=== PATIENT | male | born 1970 | race Two or more races ===

== ENCOUNTER → 2021-12-17 00:21 | Outpatient (CLI) | payer OTHER, SELFPAY ==
[2021-12-17 11:53] LABS: SARS-CoV-2 RNA PCR Negative
== END ==
PROVIDERS: Visit Provider Urology
DX: Z01.812 Encounter for preprocedural laboratory examination (principal); Z20.822 Contact with and (suspected) exposure to COVID-19
CPT/HCPCS: C9803; U0003; U0005

== ENCOUNTER 2021-12-20 00:19 | Day surgery (SDC) | payer OTHER, SELFPAY ==
[2021-12-15 12:15] VITALS: BMI 27.9
--- NOTE | 2021-12-15 12:26 | PC.NURSE ---
Report to the Outpatient Waiting Room, entrance under the green pavilion located off [facility], at time 1330 on date 12/20/21. OR Time: 1530. - You and your visitor will be asked a series of questions to screen for COVID 19 for your protection. - A mask is required within the hospital. One visitor will be allowed to accompany the patient into the hospital. Patients visitor will be instructed to remain with patient at all times or leave the building. We will allow the visitor to come back to the postoperative area when patient is ready. Preoperative COVID Testing Requirements: COVID TEST 12/17 AT 0845 No COVID Test needed if: (proof is required; if not received patient will have Rapid Test prior to entry) - Patient has received COVID Vaccine at least 14 days prior to procedure date or - Patient has positive COVID test result within last 90 days of surgery date. COVID Test needed if above criteria is not met If not COVID vaccinated a COVID test must be conducted within 72 hours of surgery and patient is asked to isolate self from time of testing until procedure. You will go to the [facility] for your COVID testing. The [facility] is located at the corner of [address] [facility]. You will only be called if COVID results are positive and your surgeon may reschedule your elective surgery date. Patients may have clear liquids (water, carbonated beverages, clear teas, apple juice) until 3 hours prior to surgery with a maximum of 20 ounces. - No food from midnight until time of surgery Take the following medications with a SIP of water the morning of surgery: NONE Medications to discontinue per physician: N/A Date to take last dose: N/A Please no make-up, nail bulgarian, hairspray, perfume, deodorant, or body powder the day of surgery. No jewelry (including any body piercings) or valuables the day of surgery, leave them at home. Please take a shower or bath the night before, or the morning of, surgery with an antibacterial soap. Wear comfortable, loose fitting clothing. - Jewelry must be removed prior to entering the operating room. Rings and piercings that are not removed may be cut off. - The hospital will not accept responsibility for valuables. - Please leave all valuables, including medications, at home the day of surgery. If you are going home after surgery, a licensed warehouse associate driver must drive you home. - NO public transportation without another adult. - We recommend that an adult stay with you for 24 hours following discharge. - We also recommend that you do not drive, make important decision, drink alcoholic beverages, or take any drugs that were not prescribed by your health care provider for at least 24 hours after your discharge time. Follow any additional instructions given to you from your surgeon. Telephone instructions given to GRICELDA MICHELE and asked if any additional questions and then verbalized understanding. Patient advised to call surgeon office or pre surgery nurse liaison [phone] if any additional questions.
[2021-12-20] VITALS (7 sets, daily range): BP systolic 117–155; BP diastolic 82–94; PULSE 63–76; RESP 10–16; TEMP 36.8; O2SAT 97–100
--- NOTE | ~2021-12-20 | XR_ITS ---
EXAMINATION: XR urethrocystogram DATE: 12/20/2021 15:47 INDICATION: Urethral stricture. TECHNIQUE: 10 intraoperative fluoroscopic images from a retrograde urethrogram were obtained. I was n ot present. Fluoroscopy exposure time was 32 seconds. COMPARISON: None. FINDINGS: There is a stricture of the bulbar urethra. Images demonstrate passage of a wire to the grace dder. Additional images demonstrate a catheter dilating the urethral stricture. IMPRESSION: 1. Stricture of the bulbar urethra. Reviewed, dictated and finalized at location B.
--- NOTE | 2021-12-20 13:15 | WPDHPUPDATE1 ---
History and Physical Update Update Date/Time: 12/20/21 13:15 History and Physical has been reviewed, including an updated exam of the patient. There are NO changes in the patient's condition. Risks, benefits, and alternatives have been discussed and questions answered. Patient agrees to proceed with procedure.
--- NOTE | 2021-12-20 13:33 | P.PNAN_ITS ---
Anes - Initial Pre Proc Eval Procedure: Operation Date: 12/20/21 15:30 Proposed Procedures p Cystoscopy with Urethral Dilation, Retrograde Urethrogram - Garo Medrano MD Date/Time: 12/20/21 13:33 Surgeon: Garo Medrano MD Pre Op Diagnosis: Urethral Stricture Patient Data Age: 51 Gender: M Height: 1.85 m Weight: 96.16 kg Allergies Allergy/AdvReac Type Severity Reaction Status Date / Time No Known Allergies Allergy Verified 12/20/21 13:48 Home Medications Medication Instructions Recorded Confirmed Type sildenafil 50 mg PO DAILY PRN 12/15/21 12/20/21 History Patient hx anesthesia problems: none Family hx anesthesia problems: none Results Review: All pre-operative results and documents have been reviewed as part of the pre-operative evaluation. FOR[facility]LY [facility], [facility] Past Medical History Medical History (Updated 12/20/21 @ 13:34 by Bacilio Talbot MD) Overweight (BMI 25.0-29.9) Smoker Ureterolithiasis Urethral stricture Family History Family History (Updated 10/07/18 @ 10:31 by DOCTOR UNKNOWN) Father Hypertension Acute myocardial infarction Grandparent Carcinoma of colon Social History Social History Smoking status: Light tobacco smoker Tobacco type: cigars Second hand tobacco smoke exposure: No Additional smoking assessment comments: 1-2 TIMES/MONTH Alcohol intake: never Substance use: never Substance use type: does not use Living arrangements: with family Spiritual care concerns: No Anes - Eval Final PreProcedure Day of Procedure 12/20/21 13:33 Patient weight: overweight Heart: regular rate and rhythm Lungs: clear to auscultation and normal air movement Airway: Mallampati scale class II Neurological: alert and oriented Last oral intake: >/= 8 hours ASA classification: II Emergent: no Anesthetic plan: proceed Anesthesia type and monitoring: general LMA Results Review: All pre-operative results and documents have been reviewed as part of the pre-operative evaluation. Informed Consent: The patient's anesthetic plan and its attendant risks and benefits were discussed with the patient/family/POA. Questions were solicited and answers provided to the satisfaction of the patient/family/POA.
[2021-12-20] MEDS: LACTATED RINGERS 1,000 ML 30 ML IV CONT (13:58)
[2021-12-20] MEDS: ceFAZolin 2 GM/D5W 50 ML 2 GM/50 ML BAG IVPB (15:05)
[2021-12-20] MEDS: LIDOCAINE HCL 2% GEL UROJET 10 ML PKG MUCOUS MEM (15:11)
--- NOTE | 2021-12-20 15:44 | P.OP_ITS ---
Procedure Note - Detailed Date of Procedure 12/20/21 Pre-op Diagnosis Urethral Stricture Post-op Diagnosis Same Procedure Performed Retrograde urethrogram, urethral dilation, cystoscopy, Martinez catheter placement Surgeon Garo Medrano MD Anesthesia General Description of Procedure Patient is taken the operative suite and correctly identified. He was placed in dorsal lithotomy position prepped draped usual sterile fashion once general anesthesia was obtained. Retrograde urethrogram was performed. He has a approximately half a cm in length stricture in the bulbar urethra. We manipulated a guidewire past this area. We then used amplantz dilators and dilated up to 24 [place]. Cystoscopy was then performed. There were no other strictures noted. The prostate was not obstructive. The bladder itself was without any evidence of tumors. Scope was removed. 2% viscous lidocaine was inserted urethra. Twenty [place] tip catheter was passed over the guidewire up to the bladder. We inflated balloon with 10 cc sterile water. Patient is taken recovery stable condition. We will remove the catheter Sunday. If he is not tolerating it then possibly Sunday Drains Yes Packing No Pathology None sent Complications No immediate complications Condition Stable Disposition PACU
== END 2021-12-20 17:21 | disposition home or self-care (01) ==
PROVIDERS: Visit Provider Urology
PROC: (CPT 52352; principal; 2021-12-20 15:30)
DX: N35.912 Unspecified bulbous urethral stricture, male (principal); Z72.0 Tobacco use
CPT/HCPCS: 52281; 51610; 74450; A9270; C1726; C1769; C9803; J0690; J2001; J2250; J2704; J3010; J7120; Q9966; U0003; U0005